=== PATIENT | male | born 1950 | race African-American/Black ===

== ENCOUNTER 2018-10-11 15:29 | Emergency (ER) | payer OTHER ==
[~2018-10-11] VITALS: Ht 165.1 cm; Wt 74.0 kg
[2018-10-11] MEDS ORDERED: IBUPROFEN 600MG TABLET PO ONE (16:30)
[2018-10-11 16:31] VITALS: BP 124/72
== END 2018-10-11 16:45 | disposition home or self-care (01) ==
LOC: ER 16:11
DX: S16.1XXA Strain of muscle, fascia and tendon at neck level, initial encounter (principal); M25.562 Pain in left knee; M25.561 Pain in right knee; M54.89 Other dorsalgia; V49.40XA Driver injured in collision with unspecified motor vehicles in traffic accident, initial encounter; Y93.89 Activity, other specified; Y92.410 Unspecified street and highway as the place of occurrence of the external cause
CPT/HCPCS: 99283